=== PATIENT | female | born 1995 | race Caucasian/White ===

== ENCOUNTER 2020-09-22 19:39 | Emergency (ER) | payer OTHER ==
[~2020-09-22] VITALS: Ht 157.5 cm; Wt 99.8 kg
[~2020-09-22 19:39] MED LIST: ALLEGRA ALLERG180 MG PO; AUGMENTIN 875-1 EACH PO; BACTRIM DS TAB1 EACH PO; CENTANY30 GM TP; FLONASE 0.05%50 MCG NASAL; FLONASE16 GM IH; HYDROCODONE-AP1 EAC6 PO; IBUPROFEN 800800 M1 PO; MIRALAX17 GM; NOHOMEMEDICATIONS; PATANOL5 ML OPHTHALMIC; TESSALON PERLE100 MG PO; ZOLOFT100 MG; ZOLOFT50 MG PO
[2020-09-22 19:46] VITALS: BP 123/77
[2020-09-22] MEDS ORDERED: TRAMADOL 50 MG50 MG PO (20:21)
[2020-09-22] MEDS ORDERED: IBUPROFEN 800800 M1 PO (20:21)
[2020-09-22] MEDS ORDERED: BACTRIM DS TAB1 EACH PO (20:21)
[2020-09-22] MEDS ORDERED: KEFLEX500 M1 PO (20:21)
== END 2020-09-22 20:31 | disposition home or self-care (01) ==
LOC: M.ERS 19:39
DX: L03.116 Cellulitis of left lower limb (principal); Z90.89 Acquired absence of other organs; Z88.8 Allergy status to other drugs, medicaments and biological substances; Z91.011 Allergy to milk products